=== PATIENT | male | born 1960 | race Two or more races ===

== ENCOUNTER 2025-01-04 21:22 | Emergency (ER) | payer MEDICAID, OTHER ==
[~2025-01-04] VITALS: Ht 172.7 cm; Wt 72.7 kg
--- NOTE | 2025-01-04 21:43 | ED.PDOC ---
HPI (NEURO) HPI Comments 64 y.o male with PMHx of schizophrenia, Alzheimer's, seizures, DM and HTN, presents to the ED via EMS s/p seizure episode today. Patient lives in a long term with both caregivers who witnessed the seizure today. Caregiver at [facility] site reports patient's last seizure was 5 months ago. Caregiver reports patient is compliant with all medications but mentions that patient is not on any schizophrenic medication since he was never prescribed any. Patient is alert and oriented x 1 which is his normal baseline per caregivers. No other complaints reported at this time. Time Seen by MD: 21:25 Reviewed Notes: Nurses Notes, Mechanical Striper Notes, Medications, Allergies Information Source: Emergency Med Personnel, Legal Guardian Mode of Arrival: EMS Severity: Moderate Timing: Hours Duration: Since onset Seizure Location: Generalized Onset: At rest Circumstances: Spontaneous Symptoms: None Before: Normal During: LOC After: Normal Mentation History of: Seizure Disorder Modifying factors: Nothing Associated Signs and Symptoms: Other Past Medical History PAST MEDICAL HISTORY: Alzheimer, Dementia, DM, HTN, Schizophrenia, Seizures Surgical History: Denies all surgeries Family History Family History: Reviewed,noncontributory to illness Social History Smoker: Non-Smoker Alcohol: Denies ETOH Use Drugs: Denies Drug Use Lives In: Other (long term ) Unable to Obtain due to: Dementia Physical Exam General Appearance: Other (patient at normal baseline A+O x1 ) HEENT: Normal ENT Inspection Neck: Normal Inspection Respiratory: Lungs Clear, No Accessory Muscle Use, No Respiratory Distress, Normal Breath Sounds Cardiovascular: No Edema, No JVD, No Murmur, No Gallop, Normal Peripheral Pulses, Regular Rate/Rhythm Breast Exam: Deferred Gastrointestinal: No Organomegaly, Non Tender, No Pulsatile Mass, Normal Bowel Sounds, Soft Genitalia: Deferred Pelvic: Deferred Rectal: Deferred Extremities: Normal inspection Neurologic: No Sensory Deficits, Other (patient's baseline: alert and orientated x 1 ) Cerebellar Function: Normal Reflexes: Normal Skin: Normal Color Lymphatic: NOT DONE Was a procedure done? Was a procedure done?: No Differential Diagnosis (SZ) Seizure: Syncope, Encephalopathy, Epilepsy-Break Through, Epilepsy-Status General Weakness: Dehydration, Electrolyte imbalance X-Ray, Labs, Meds, VS Vital Signs Date Time Temp Pulse Resp B/P (MAP) Pulse Ox O2 Delivery O2 Flow Rate FiO2 01/04/25 22:25 97.8 66 16 125/81 (96) 96 97.8 01/04/25 22:25 62 18 96 Room Air* 0 21 01/04/25 21:31 97.8 66 16 125/81 (96) 96 97.8 Lab Test 01/04/25 23:34 01/04/25 22:20 Range/Units Urine Color Light-yellow Yellow Urine Clarity Clear Clear Urine pH 7.5 5.0-9.0 Urine Specific [place] 1.010 1.001-1.035 Urine Protein Negative Negative Urine Ketones Negative Negative Urine Blood Negative Negative /uL Urine Nitrite Negative Negative Urine Bilirubin Negative Negative Urine Urobilinogen Normal Negative mg/dL Urine Leukocyte Esterase Negative Negative /uL Urine RBC <1 0 - 3 /hpf Urine Microscopic WBC 1 0-3 /HPF Urine Squamous Epithelial Cells None seen <5 /hpf Urine Bacteria None seen None Seen /hpf Urine Glucose Normal Normal mg/dL White Blood Count 6.9 4.4-10.8 10^3/uL Red Blood Count 4.54 4.5-5.90 10^6/uL Hemoglobin 14.2 13.5-17.5 g/dL Hematocrit 40.5 L 41.0-53.0 % Mean Corpuscular Volume 89.3 80.0-100.0 fL Mean Corpuscular Hemoglobin 31.3 28.0-32.0 pg Mean Corpuscular Hemoglobin Concent 35.1 32.0-36.0 g/dL Red Cell Distribution Width 14.1 11.8-14.3 % Platelet Count 202 140-450 10^3/uL Mean Platelet Volume 10.4 6.9-10.8 fL Neutrophils (%) (Auto) 68.8 37.0-80.0 % Lymphocytes (%) (Auto) 23.0 10.0-50.0 % Monocytes (%) (Auto) 6.0 0.0-12.0 % Eosinophils (%) (Auto) 1.8 0.0-7.0 % Basophils (%) (Auto) 0.4 0.0-2.0 % Neutrophils # (Auto) 4.8 1.6-8.6 10 ^3/uL Lymphocytes # (Auto) 1.6 0.4-5.4 10 ^3/uL Monocytes # (Auto) 0.4 0-1.3 10 ^3/uL Eosinophils # (Auto) 0.1 0-0.8 10 ^3/uL Basophils # (Auto) 0 0-0.2 10 ^3/uL Nucleated Red Blood Cells 0.1 % Sodium Level 133 L 136-145 mmol/L Potassium Level 3.5 3.5-5.1 mmol/L Chloride Level 96 L 98-107 mmol/L Carbon Dioxide Level 27 20-31 mmol/L Anion Gap 10 5-15 Blood Urea Nitrogen 15 9-23 mg/dL Creatinine 1.40 H 0.700-1.30 mg/dL Glomerular Filtration Rate Calc 55 >90 mL/min BUN/Creatinine Ratio 10.7 10.0-20.0 Serum Glucose 111 H 74-106 mg/dL Lactic Acid Level 2.1 *H 0.4-2.0 mmol/L Calcium Level 9.3 8.7-10.4 mg/dL Total Bilirubin 0.6 0.2-1.0 mg/dL Aspartate Amino Transferase (AST) 26 13-40 U/L Alanine Aminotransferase (ALT) 15 7-40 U/L Alkaline Phosphatase 66 46-116 U/L Total Protein 6.8 5.7-8.2 g/dL Albumin 4.0 3.2-4.8 g/dL Current Medications Medications (Trade) Dose Ordered Sig/Eli Route Start Time Stop Time Status Last Admin Sodium Chloride 1,000 ml @ 1,000 mls/hr Q1H ONCE IV 01/04/25 23:30 01/05/25 00:29 01/04/25 23:56 X-Ray, Labs, Meds, VS Comment CT Head IMPRESSION: 1. No acute intracranial abnormality. CXR FINDINGS: Lines and Tubes: None Lungs: No pulmonary infiltrates or edema. Probable emphysematous changes. Pleura: No effusion. No pneumothorax. Cardiomediastinal contours: Unremarkable IMPRESSION: No acute abnormality demonstrated. MDM: Patient with history as above presented with seizure. History obtained from EMS and caregiver. Patient was nontoxic, stable, afebrile, ambulatory, no acute distress. Exam as above. Labs reviewed. CBC did not show leukocytosis. No anemia noted. CMP showed mild hyponatremia at 133 with decreased chloride at 96. Creatinine mildly elevated at 1.4. BUN within normal limits. Lactic acid mildly elevated at 2.1. Urinalysis was negative for acute infection. I ndependently reviewed imaging. CT head did not show acute intracranial abnormality. X-ray did not show acute cardiopulmonary disease. Reviewed external records. All findings were discussed with the patient. Differential diagnosis considered. Overall presentation is consistent with seizure. Low suspicion for pneumonia, intracranial bleed, significant electrolyte abnormalities. Patient was treated with IV fluids with improvement of symptoms Patient was reevaluated and vital signs were reviewed. Patient has improved mental status. He is alert and oriented x2. Consideration was given for admission, but the patient was stable for outpatient management. Disposition: Discussed the need to follow up diagnostics, including incidental findings. Discharged the patient with instructions to obtain outpatient follow up in 1-2 days of today's symptoms and findings, with strict return precautions if patient develops new or worsening symptoms. This medical document was created using the [employer] system. Although this document has been carefully reviewed, there may still be some phonetic and typographical errors, which are due to imperfections of the software program, and do not reflect any compromise in the patient's medical care. Time of 1ST Reevaluation: 21:48 Reevaluation 1ST: Unchanged Time of 2ND Reevaluation: 23:37 Reevaluation 2ND: Improved Time of 3RD Reevaluation: 00:05 Reevaluation 3RD: Improved Patient Education/Counseling: Other (alert and oriented x 1- normal baseline due to hx of dementia ) Family Education/Counseling: Diagnosis, Treatment, Prognosis Departure 1 Departure Time of Disposition: 00:02 Impression: Primary Impression: Seizure Disposition: 01 HOME / SELF CARE / HOMELESS Condition: Fair Critical Care Note Critical Care Time?: No Stability Stability form required: No Heart Score Heart Score: Heart Score Response (Comments) Value History N/A 0 EKG N/A 0 Age N/A 0 Risk Factors N/A 0 Troponin N/A 0 Total 0 I personally scribed for TREVON STEEN MD ([email or web address]) on 01/04/25 at 21:55. Electronically submitted by Crys Murphy ([facility]). [facility] Jan 04, 2025 21:43 TREVON STEEN MD Jan 04, 2025 21:55
[2025-01-04 22:25] VITALS: PULSE 62; RESP 18; O2SAT 96
[2025-01-04 22:55] LABS: Alanine Aminotransferase 15 U/L (7-40); Alkaline Phosphatase 66 U/L (46-116); Anion Gap 10 (5-15); Aspartate Aminotransferase 26 U/L (13-40); BUN/Creatinine Ratio 10.7 (10.0-20.0); Bilirubin, Total 0.6 mg/dL (0.2-1.0); Blood Urea Nitrogen 15 mg/dL (9-23); Calcium 9.3 mg/dL (8.7-10.4); Carbon Dioxide 27 mmol/L (20-31); Chloride 96 mmol/L (98-107); Glucose 111 mg/dL (74-106); Potassium 3.5 mmol/L (3.5-5.1); Sodium 133 mmol/L (136-145); Total Protein 6.8 g/dL (5.7-8.2)
--- NOTE | 2025-01-04 22:57 | DVH ---
EXAM: CT HEAD WITHOUT CONTRAST INDICATION: Seizure TECHNIQUE: CT of the head without intravenous contrast. Radiation Dose : 1. Head: CT Dose: CTDI volume is 52.06 mGy. Dose-length product is 834.74 mGy*cm The dose indicators for CT are the volume Computed Tomography (CT) Dose Index (CTDIvol) and the Dose Length Product (DLP), and are measured in units of mGy and mGy-cm, respectively. These indicators are not patient dose, but values generated from the CT scanner acquisition factors. The report includes radiation exposure data for exposures received during this examination. COMPARISON: None FINDINGS: There is no evidence of acute intracranial hemorrhage, extra-axial collection, mass effect, midline s hift, herniation or hydrocephalus. The ventricles, sulci and cisterns are age appropriate. The good-white differentiation is intact. Patchy periventricular and subcortical white matter hypoattenuation is nonspecific but may be related to small vessel ischemic disease. The visualized paranasal sinuses and mastoid air cells are clear. The surrounding soft tissues and osseous structures are unremarkable. IMPRESSION: 1. No acute intracranial abnormality. Radiation optimization: All CT scans at this facility use at least one of these dose optimization xander hniques: automated exposure control mA and/or kV adjustment per patient size (includes targeted exam s where dose is matched to clinical indication) or iterative reconstruction.
[2025-01-04 23:04] LABS: Lactic Acid w/Reflex 2.1 mmol/L (0.4-2.0)
[2025-01-04 23:11] LABS: Basophils # (auto) 0 10 ^3/uL (0-0.2); Basophils % (auto) 0.4 % (0.0-2.0); Eosinophils # (auto) 0.1 10 ^3/uL (0-0.8); Eosinophils % (auto) 1.8 % (0.0-7.0); Hematocrit 40.5 % (41.0-53.0); Hemoglobin 14.2 g/dL (13.5-17.5); Lymphocytes # (auto) 1.6 10 ^3/uL (0.4-5.4); Mean Corpuscular Hemoglobin 31.3 pg (28.0-32.0); Mean Corpuscular Hgb Conc. 35.1 g/dL (32.0-36.0); Mean Corpuscular Volume 89.3 fL (80.0-100.0); Monocytes # (auto) 0.4 10 ^3/uL (0-1.3); Neutrophils # (auto) 4.8 10 ^3/uL (1.6-8.6); Neutrophils % (auto) 68.8 % (37.0-80.0); Nucleated Red Blood Cells % 0.1 %; Platelet Count (auto) 202 10^3/uL (140-450); Red Blood Cells 4.54 10^6/uL (4.5-5.90); Red Cell Distribution Width 14.1 % (11.8-14.3); White Blood Cell 6.9 10^3/uL (4.4-10.8)
--- NOTE | 2025-01-04 23:35 | DVH ---
CHEST RADIOGRAPH Indication: R/o pneumonia Technique: Single frontal view of the chest was obtained COMPARISON: None FINDINGS: Lines and Tubes: None Lungs: No pulmonary infiltrates or edema. Probable emphysematous changes. Pleura: No effusion. No pneumothorax. Cardiomediastinal contours: Unremarkable IMPRESSION: No acute abnormality demonstrated.
[2025-01-04 23:36] LABS: Urine Bacteria None Seen /hpf (None Seen)
[2025-01-04 23:43] LABS: Urine Blood Negative /uL (Negative); Urine Clarity Clear (Clear); Urine Color Light-Yellow (Yellow); Urine Protein, UAD Negative (Negative); Urine Squamous Epithelial Cell None Seen /hpf (<5); Urine Urobilinogen Normal (Negative); Urine WBC 1 /HPF (0-3); Urine pH 7.5 (5.0-9.0)
[2025-01-04] MEDS: SODIUM CHLORIDE 0.9% 1,000 ML IV ONE (23:56)
[2025-01-05 00:25] VITALS: BP 122/80; PULSE 64; RESP 16; TEMP 97.8; O2SAT 96
== END 2025-01-05 01:45 | disposition home or self-care (01) ==
LOC: ER 21:22 → EDBD 21:22 → ER 01-05 01:45
DX: R56.9 Unspecified convulsions (principal); I10 Essential (primary) hypertension; E11.9 Type 2 diabetes mellitus without complications; F02.80 Dementia in other diseases classified elsewhere, unspecified severity, without behavioral disturbance, psychotic disturbance, mood disturbance, and anxiety; F20.9 Schizophrenia, unspecified; G30.9 Alzheimer's disease, unspecified
CPT/HCPCS: 36415; 70450; 71045; 80053; 81001; 83605; 85025; 96360; 99284; J7030